=== PATIENT | male | born 1975 | race Caucasian/White ===

== ENCOUNTER 2016-07-06 22:16 | Emergency (ER) | payer OTHER ==
[~2016-07-06] VITALS: Ht 170.2 cm; Wt 68.2 kg
[2016-07-06 22:19] VITALS: BP 104/67; PULSE 102; RESP 18; O2SAT 100
--- NOTE | 2016-07-06 22:26 | ED.REPORT ---
HPI-Chest Pain 40 and Over Date of Service Jul 06, 2016 ED Provider: MD Ricky This is a 41 year old male who is a current, everyday smoker presenting to the emergency department complaining of left sided chest pain that began 1 hour ago. Reports 1-2 second episodes of sharp stabbing left sided chest pain that spontaneously resolve. He has not had an episode in the ED. Denies SOB, nausea, vomiting, or diaphoresis during episodes. Denies cough, fever, chills, lower extremity swelling. Nursing Notes Stated Complaint: CHEST PAIN Chief Complaint: Chest Pain Nursing Notes Reviewed: Yes Allergies: Coded Allergies: pseudoephedrine (Verified Allergy, Intermediate, 07/06/16) jittery, palpitations Scheduled Melatonin (Melatonin) 5 Mg Tab.rapdis 5 MG PO HS Omeprazole (Omeprazole) 20 Mg Capsule.dr 20 MG PO DAILY Scheduled PRN Doxylamine Succinate (Unisom) 25 Mg Tablet 25 MG PO HS PRN PRN For Sleep General Time Seen by MD: 22:26 Chief Complaint Chest pain Hx Obtained From: Patient Arrived By: Walk-in Sudden in Onset?: Yes Onset Occurred: 1 - 4 hours ago Symptom Duration: Since onset Severity: Current: Mild Pertinent Negative: Pt denies other symptoms Recent Healthcare: No recent doctor visit, No recent hospitalization Similar Sx Previous: No Past Medical History Past Medical History Denies Past Surgical History Denies Family History Parents MIs in 50s Smoking History Current Every Day Smoker Ambulatory Status Independent Review of Systems Constitutional: Denies: Chills, Fever Respiratory: Denies: Shortness of breath Cardiovascular: Reports: Chest pain GI: Denies: Abdominal pain, Diarrhea, Nausea, Vomiting Musculoskeletal: Denies: Back pain, Neck pain Neurologic: Denies: Headache Complete sys rev & neg: except as marked. Physical Exam Initial Vital Signs Vital Signs (First) Date Time Temp Pulse Resp B/P Pulse Ox O2 Delivery O2 Flow Rate FiO2 07/06/16 22:19 36.6 102 18 104/67 100 Room Air Initial VS: Reviewed Head / Eyes: Atraumatic, Normocephalic, PERRL ENT: Mucous membranes moist, Conjunctiva normal, No scleral icterus Neck: Supple, Non-tender, Full range of motion Extremities: Vascular intact, Neuro intact, No swelling, No tenderness Skin: Warm, Dry, No cyanosis Neurologic: Alert, Oriented, Nonfocal Psychiatric: Mood/affect normal, Behavior normal, Normal thought content General/Constitutional: Awake, Alert Respiratory / Chest: Breath sounds NL, Breath sounds = bilat, No respiratory distress, No rales, No rhonchi, No wheezing, No stridor, No chest tenderness Cardiovascular: Heart rate NL, Regular rhythm, Heart sounds NL, No murmurs, Peripheral circulation NL, Pulses = bilaterally, No gross BP differential Abdomen: Soft, Non-tender, McBurney's non-tender, No guarding, No rebound, BS normoactive, No distention, No hernia, No palpable mass Interpretation & Diagnostics Lab Results Interpretation Result Diagram: 07/06/16 2300 07/06/16 2300 Test 07/06/16 23:00 07/07/16 00:10 07/07/16 02:12 White Blood Count 9.3th/mm3 (3.8-10.1) Red Blood Count 4.72mil/mm3 (4.40-5.80) Hemoglobin 15.3g/dL (13.8-17.2) Hematocrit 44.2% (41.0-50.0) Mean Corpuscular Volume 93.6fL (81-100) Mean Corpuscular Hemoglobin 32.4pg (27.0-35.0) Mean Corpuscular Hemoglobin Concent 34.6% (32.0-37.0) Red Cell Distribution Width 13.1% (12.3-15.4) Platelet Count 320bil/L (150-400) Neutrophils (%) (Auto) 53.1% (40-74) Lymphocytes (%) (Auto) 34.3% (14-46) Monocytes (%) (Auto) 6.7% (4-12) Eosinophils (%) (Auto) 5.2% (0-5) Basophils (%) (Auto) 0.5% (0-3) Sodium Level 140mEq/L (134-144) Potassium Level 3.8mEq/L (3.5-5.2) Chloride Level 100mEq/L (97-108) Carbon Dioxide Level 25mmol/L (18-29) Blood Urea Nitrogen 16mg/dL (6-24) Creatinine 0.73mg/dL (0.76-1.27) Estimat Glomerular Filtration Rate 126mL/min (>59) Glucose Level 111mg/dL (60-99) Calcium Level 9.2mg/dL (8.5-10.1) Magnesium Level 1.8mg/dL (1.6-2.6) Total Bilirubin 0.2mg/dL (0.0-1.2) Aspartate Amino Transf (AST/SGOT) 27U/L (0-50) Alanine Aminotransferase (ALT/SGPT) 35U/L (0-44) Alkaline Phosphatase 74U/L (25-150) Pro-B-Type Natriuretic Peptide < 5.00pg/mL (0-86) Total Protein 6.8g/dL (6.4-8.4) Albumin 4.5g/dL (3.4-5.0) Hold Urine Received (Received) Troponin T 0.010ug/L (0.0-0.011) ECG Interpretation ECG Interpretation: NSR at a rate of [address] elevation Slight ST depression in V4 and V5 Small q wave in lead 3 T-wave inversions in lead 3, AVR Time: 22:35 Interpreted by: ED physician ECG Interpretation: NSR at a rate of 65 Small q-wave in lead 3, unchanged from prior. T-wave inversion in AVR Time: 02:11 Interpreted by: ED physician X-Ray Chest Interpretation Interpretation / Wet Read by: Wet read ED physician NL X-Ray Chest Findings: No infiltrate, No acute disease Re-Eval/Medical Decision Med Decision/Clinical Course 41-year-old male with past medical history of tobacco abuse and with no family history, and no true past medical history here with intermittent chest pain. Differential diagnosis includes but is not limited to ACS versus pneumonia versus PE versus dissection. Patient is low risk by heart score, and has 2 negative troponins. I am confident that he is not having myocardial ischemia. His exam is not consistent with aortic dissection, and he does not have any mediastinal widening on chest x-ray. I do not feel he has dissection. Additionally, he is PERC negative, and does not require workup for PE. He is not hypoxic or tachycardic. I do not see pneumonia on his chest x-ray. At this time, patient is amenable to discharge with follow-up with the [facility]. I have encouraged him to quit smoking. He is given very strict return precautions. Time of Eval: 02:40 Re-Evaluation/Progress Note: Discussed lab and imaging results and plan for d/c, all questions addressed. Counseled Regarding: Diagnosis, Lab results, Need for follow-up, When/why to return to ED Discharge & Departure Primary Impression: Chest pain Chest pain type: unspecified Qualified Code: R07.9 - Chest pain, unspecified Disposition: Home Discharge Condition All VS Reviewed: Yes Condition: Stable Patient Instructions: Chest Pain (ED) Additional Instructions: Lab testing was reassuring today, an acute cause for your symptoms was not identified. Follow up with your primary care provider for further evaluation of your symptoms. Call Friday to schedule an appointment. Return to the emergency department for any new or worsening symptoms. Referrals: [facility] Scribe Attestation Portions of this note were transcribed by Jinny Donaldson. I, Dr. García personally performed the history, physical exam and medical decision-making; I reviewed and confirmed the accuracy of the information in the transcribed note. Signed by: sancho Gordillo. 07/06/2016, 23:00. Mignon García MD Jul 06, 2016 22:26 JINNY DONALDSON Jul 06, 2016 22:30
[2016-07-06 22:30] VITALS: BP 136/74; PULSE 96; RESP 20; O2SAT 100
[2016-07-06] MEDS ORDERED: MELA5TAB12 PO (22:41)
[2016-07-06] MEDS ORDERED: OMEP20CA11 PO (22:41)
[2016-07-06] MEDS ORDERED: DOXY25TA46 PO (22:42)
[2016-07-06 23:11] LABS: BASOPHILS % (AUTO) 0.5 % (0-3); EOSINOPHILS % (AUTO) 5.2 % (0-5); MONOCYTES % (AUTO) 6.7 % (4-12); Mean Corpuscular Hemoglobin 32.4 pg (27.0-35.0); Mean Corpuscular Volume 93.6 fL (81-100); NEUTROPHILS % (AUTO) 53.1 % (40-74); Platelet Count 320 bil/L (150-400)
[2016-07-07 00:12] LABS: Magnesium 1.8 mg/dL (1.6-2.6)
[2016-07-07 01:13] VITALS: BP 119/53; PULSE 72; RESP 18; O2SAT 97
[2016-07-07 02:53] VITALS: BP 97/47; PULSE 66; RESP 16; O2SAT 97
--- NOTE | 2016-07-07 07:24 | DRSVH ---
PROCEDURE: X-RAY CHEST ONE VIEW, PORTABLE ([id number]) INDICATIONS: chest pain TECHNIQUE: One view of the chest was acquired. COMPARISON: None. FINDINGS: Surgical changes and devices: None. Lungs and pleura: No pleural effusions or pneumothorax. Lungs are clear. Mediastinum: Mediastinal contours appear normal. Heart size is normal. Bones and chest wall: No suspicious bony lesions. Overlying soft tissues appear unremarkable. IMPRESSION: No acute disease Dictated by: Alfonso Mann M.D. on 07/07/2016 at 7:22 Approved by: Alfonso Mann M.D. on 07/07/2016 at 7:24
== END 2016-07-07 02:54 | disposition home or self-care (01) ==
LOC: SED 22:16
DX: R07.9 Chest pain, unspecified (principal); F17.200 Nicotine dependence, unspecified, uncomplicated; Z88.8 Allergy status to other drugs, medicaments and biological substances